=== PATIENT | female | born 1935 | race Caucasian/White ===

== ENCOUNTER 2023-03-28 12:02 | Emergency (ER) | payer MEDICARE, BC, SELFPAY ==
[2023-03-28] VITALS (12 sets, daily range): BP systolic 186–210; BP diastolic 88–110; PULSE 66–76; RESP 12–16; TEMP 36.6; O2SAT 93–100; BMI 26.5
--- NOTE | 2023-03-28 12:25 | ED.NURSE ---
Dr. Barton at bedside. States this is not a stroke and there is no need to call a code stroke overhead.
--- NOTE | 2023-03-28 12:31 | CRLHL7_ITS ---
For Patients: As a result of the Century Cures Act, medical imaging exams and procedure reports are released immediately into your electronic medical record. You may view this report before your referring provider. If you have questions, please contact your health care provider. INDICATION: Dizziness TECHNIQUE: Noncontrast axial CT of the head is submitted. No comparisons. FINDINGS: Mild cerebral atrophy. The ventricles, sulci and gyri are of normal size, shape and contour for age and degree of atrophy. Midline structures are centrally located. No convincing evidence of suspicious intra- or extra-axial fluid collections. Moderate patchy regions of decreased attenuation within the periventricular and subcortical white matter of both cerebral hemispheres. IMPRESSION: 1. No radiographic evidence of acute intracranial abnormalities. 2. Mild cerebral atrophy. 3. Moderate supratentorial white matter changes that are non-specific, but statistically most likely related to chronic small vessel ischemic disease. Dictated by Zach Richards MD @ 03/28/2023 1:39:11 PM Please note that all CT scans at this facility use dose modulation, iterative reconstruction, and/or weight-based dosing when appropriate to reduce radiation dose to as low as reasonably achievable. Dictated by: Zach Richards MD @ 03/28/2023 13:39:17 (Electronically Signed)
--- NOTE | 2023-03-28 12:45 | ED.NURSE ---
Reconfirmed with Dr. Galvan that he does not want to call a code stroke. States patient is outside of the window for treatment and does not believe this to be a stroke. States its unnecessary for patient to have q5-10m blood pressures.
[2023-03-28 12:49] LABS: Basophils Absolute Auto 0.01 K/uL (0.00-0.30); Basophils Percent Auto 0.2 % (0.0-3.0); Eosinophils Absolute Auto 0.05 K/uL (0.00-0.50); Eosinophils Percent Auto 0.8 % (0.0-7.0); Hematocrit 37.8 % (33.0-51.0); Hemoglobin* 12.4 gm/dL (12.0-16.0); Immature Granulocytes Abs Auto 0.01 K/uL (0.00-0.30); Immature Granulocytes Pct Auto 0.2 %; Lymphocytes Percent Auto 15.1 % (20-44); Mean Corpuscular HGB Conc 33 gm/dL (32-36); Mean Corpuscular Hemoglobin 33 pg (26-34); Mean Corpuscular Volume 102 fL (80-100); Monocytes Percent Auto 5.5 % (0.0-11.0); Neutrophils Percent Auto 78.2 % (42.0-72.0); Platelet Count* 205 K/uL (140-440); RDW Coefficient of Variation % 13.6 % (11.5-15.5); Red Blood Count 3.71 m/uL (4.00-5.20); White Blood Count* 6.01 K/uL (4.50-11.00)
[2023-03-28 12:50] LABS: Slide Review Reflex No
--- NOTE | 2023-03-28 12:57 | ED.NURSE ---
Pt to imaging via w/c.
[2023-03-28 13:00] LABS: Albumin* 4.3 g/dL (3.3-5.0); Chloride* 103 mmol/L (96-114); Potassium* 4.4 mmol/L (3.6-5.1); Sodium* 139 mmol/L (135-149)
[2023-03-28 13:03] LABS: Alanine Aminotransferase* 38 U/L (4-35); Alkaline Phosphatase* 97 U/L (40-150); Anion Gap 8 mEq/L (7-15); Aspartate Amino Transferase* 33 U/L (12-35); Bilirubin Total* 0.7 mg/dL (0.1-1.5); Blood Urea Nitrogen* 13 mg/dL (7-30); Calcium* 8.7 mg/dL (8.4-10.6); Carbon Dioxide* 28 mmol/L (20-32); Creatinine* 0.7 mg/dL (0.5-1.5); Est. Creatinine Clearance* 30.76; Estimated Glomerular Filt Rate 83 ml/min; Glucose* 172 mg/dL (60-115); Total Protein* 6.9 g/dL (6.0-8.3)
--- NOTE | 2023-03-28 13:03 | ED.NURSE ---
refusing FLU/COVID swab. notified.
[2023-03-28] MEDS: LACTATED RINGERS 1000 ML 1,000 ML IV (13:10)
[2023-03-28 13:19] LABS: Troponin I* < 0.01 ng/mL (0.01-0.04)
[2023-03-28] MEDS: MECLIZINE HCL 25 MG TABLET PO (13:34)
[2023-03-28 13:46] LABS: Appearance Urine Clear (Clear); Bilirubin Urine Negative (Negative); Blood Urine Negative (Negative); Color Urine Yellow (Yellow); Glucose Urine Negative (Negative); Ketones Urine Negative (Negative); Leukocyte Esterase Urine 1+ (Negative); Nitrite Urine Negative (Negative); Protein Urine Negative (Negative); Urobilinogen Urine 0.2 (0.2-1.0); pH Urine 7.5 (5.0-8.5)
[2023-03-28 13:55] LABS: RBC Urine 0-2 (0-2); Squamous Epithelial Cell Urine Few (None-Few)
--- NOTE | 2023-03-28 14:20 | ED.DIZZY ---
HPI - Dizziness General Date Seen: 03/28/23 Chief Complaint: Dizziness/Vertigo Stated Complaint: Dizziness Time Seen by Provider: 03/28/23 12:11 Source: patient and family Mode of arrival: wheelchair Limitations: no limitations History of Present Illness HPI Narrative: Patient is an 88-year-old female presents to the emergency department from urgent care for dizziness and weakness. Patient states she woke about around 03:00 and was going to the bathroom with a very dizzy. While she was walking to the bathroom symptoms began to resolve. She felt fine by the time she returned back to her bed and then got dizzy again when she laid down. She closed her eyes went to bed and woke up again at 08:00 feeling fine. She then got up and nose dizziness again. She states the dizziness is not constant in only occurs after movement. It is not lasting will go away she states someone position long enough. She went to urgent care and was sent to emergency department for concern of stroke. But they state she has had a stroke before in the symptoms were weakness and dizziness but that time the dizziness was constant and was different than was now. Due to the dizziness and weakness she did have to come in by wheelchair. Denies fevers, chills, chest pain, shortness of breath, headache, abdominal pain, nausea/vomiting. Related Data Home Medications Medication Instructions Recorded Confirmed gabapentin 300 mg capsule 600 mg PO BID 03/28/23 03/28/23 losartan 25 mg tablet 25 mg PO DAILY 03/28/23 03/28/23 Previous Rx's Medication Instructions Recorded meclizine 25 mg tablet 25 mg PO QID #20 tabs 03/28/23 Allergies Allergy/AdvReac Type Severity Reaction Status Date / Time acetaminophen [From Vicodin] Allergy Verified 03/28/23 10:09 cefaclor Allergy Verified 03/28/23 10:09 ciprofloxacin [From Cipro] Allergy Verified 03/28/23 10:09 erythromycin base Allergy Verified 03/28/23 10:09 hydrocodone [From Vicodin] Allergy Verified 03/28/23 10:09 levofloxacin Allergy Verified 03/28/23 10:09 Review of Systems Status of ROS: Reports: 10 or more systems reviewed and unremarkable except as noted in History and below [facility] Medical History CVA (cerebral vascular accident) ?I63.9 - Cerebral infarction, unspecified (ICD-10) Social History Smoking Status: Never smoker How often do you have a drink containing alcohol: never AUDIT-C Alcohol total score: 0 Non-prescribed substance use: denies use Exam Narrative: Exam Narrative: Const: Well-nourished, Well-developed, in mild distress Eyes: PERRL, no conjunctival injection, and symmetrical lids HENT: Atraumatic external nose and ears. Moist mucous membranes. Neck: Symmetric, trachea midline, No thyromegaly. CVS: RRR, No murmurs or gallops. Peripheral pulses 2+ and equal in all extremities RESP: Unlabored respiratory effort. Clear to auscultation bilaterally. GI: Nontender/Nondistended, No rebound or guarding. MSK:Extremities w/o deformity, Normal Active ROM Skin: Warm, Dry. No rashes or lesions. Neuro: Normal Muscle tone, Cranial nerves 2-12 grossly intact, normal [id number], normal [id number], normal gait, normal strength 5/5 upper lower extremities bilaterally, normal sensation upper and lower extremities bilaterally, normal rapid alternating movements. Psych: Awake, Alert, & Oriented x3. Appropriate mood and affect. Const: Vital Signs, click to edit/add: Vital Signs - 24 hr 03/28/23 12:19 03/28/23 12:31 03/28/23 12:32 Temperature 97.9 F Pulse Rate 67 73 Pulse Rate [Left P ulse Oximeter] 66 Respiratory Rate 16 16 Blood Pressure Blood Pressure [Le ft Upper Arm] 210/110 H Pulse Oximetry 99 100 99 Oxygen Delivery Me thod Room Air 03/28/23 12:40 03/28/23 12:44 03/28/23 12:45 Temperature Pulse Rate 69 75 70 Pulse Rate [Left P ulse Oximeter] Respiratory Rate Blood Pressure Blood Pressure [Le ft Upper Arm] Pulse Oximetry 93 94 96 Oxygen Delivery Me thod 03/28/23 13:07 03/28/23 13:15 03/28/23 13:30 Temperature Pulse Rate 72 69 76 Pulse Rate [Left P ulse Oximeter] Respiratory Rate 14 14 Blood Pressure Blood Pressure [Le ft Upper Arm] Pulse Oximetry 100 97 96 Oxygen Delivery Me thod 03/28/23 13:46 03/28/23 14:00 03/28/23 14:49 Temperature 97.9 F Pulse Rate 67 69 Pulse Rate [Left P ulse Oximeter] 66 Respiratory Rate 14 12 12 Blood Pressure 186/88 H Blood Pressure [Le ft Upper Arm] 186/88 H Pulse Oximetry 99 94 Oxygen Delivery Me thod Course Vital Signs Vital signs: Initial Vital Signs Pulse Rate 67 03/28/23 12:19 Pulse Oximetry 99 03/28/23 12:19 Vital Signs Pulse Rate 67 03/28/23 12:19 Pulse Oximetry 99 03/28/23 12:19 Temperature 97.9 F 03/28/23 14:49 Pulse Rate 66 03/28/23 14:49 Respiratory Rate 12 03/28/23 14:49 Blood Pressure 186/88 H 03/28/23 14:49 Pulse Oximetry 94 03/28/23 14:00 Oxygen Delivery Method Room Air 03/28/23 12:32 Medications Administered Medications: Discontinued Medications Generic Name Dose Route Start Last Admin Trade Name Julienne PRN Reason Stop Dose Admin Lactated Ringer's 1,000 mls @ 1,000 mls/hr 03/28/23 12:30 03/28/23 14:10 Lactated Ringers 1000 Ml IV 03/28/23 13:29 Infused .Q1H ONE Infusion Meclizine HCl 25 mg 03/28/23 13:13 03/28/23 13:34 Meclizine Hcl 25 Mg Tablet PO 03/28/23 13:14 25 mg ONCE ONE Administration MDM - Dizziness MDM Narrative Medical decision making narrative: Patient is a an 88-year-old female presents emergency department for dizziness and weakness. Symptoms started this morning interpersonal some she woke up at 03:00. She is feeling fine last night before she went to bed. She was concerned for stroke because she has had similar symptoms in the past but that time the symptoms were constant. This time is stroke seems very unlikely concerning symptoms are mostly associated with head movement. Is there is associated weakness as possible for an infection. COVID/flu/RSV was ordered but patient refused. We will do a head CT to check for any signs of intracranial masses. CBC, troponin, CMP, urinalysis ordered. She is given meclizine and lactated Ringer's. Lab workup returned showing no concerning abnormalities. Head CT showed no acute abnormalities. No signs of UTI. She is not having respiratory symptoms and pneumonia seems unlikely. After the medicines her symptoms have fully resolved and she feels back to normal. Patient is probably suffering from vertigo likely BPPV. Again seems extremely unlikely to be a stroke causing the symptoms as they resolved with the medication and again were only occurring with movement. The could been some associated dehydration also has causing the weakness. Weakness is also gone. At this time patient family feel safe for discharge. Patient follow-up with the primary care provider. Meclizine was prescribed. Lab Data Labs: Lab Results 03/28/23 03/28/23 Range/Units 12:32 12:40 WBC 6.01 (4.50-11.00) K/uL RBC 3.71 L (4.00-5.20) m/uL Hgb 12.4 (12.0-16.0) gm/dL Hct 37.8 (33.0-51.0) % MCV 102 H (80-100) fL MCH 33 (26-34) pg MCHC 33 (32-36) gm/dL RDW Coeff of Ricardo 13.6 (11.5-15.5) % Plt Count 205 (140-440) K/uL Neut % (Auto) 78.2 H (42.0-72.0) % Lymph % (Auto) 15.1 L (20-44) % Cherry % (Auto) 5.5 (0.0-11.0) % Eos % (Auto) 0.8 (0.0-7.0) % Baso % (Auto) 0.2 (0.0-3.0) % Neut # (Auto) 4.70 (1.7-7.0) K/uL Lymph # (Auto) 0.90 (0.90-2.90) K/uL Cherry # (Auto) 0.30 (0.00-0.90) K/UL Eos # (Auto) 0.05 (0.00-0.50) K/uL Baso # (Auto) 0.01 (0.00-0.30) K/uL Abs Immat Gran (auto) 0.01 (0.00-0.30) K/uL Imm/Tot Granulo (auto) 0.2 % Sodium 139 (135-149) mmol/L Potassium 4.4 (3.6-5.1) mmol/L Chloride 103 (96-114) mmol/L Carbon Dioxide 28 (20-32) mmol/L Anion Gap 8 (7-15) mEq/L BUN 13 (7-30) mg/dL Creatinine 0.7 (0.5-1.5) mg/dL Estimated Creat Clear 30.76 Estimated GFR 83 ml/min Glucose 172 H (60-115) mg/dL Calcium 8.7 (8.4-10.6) mg/dL Total Bilirubin 0.7 (0.1-1.5) mg/dL AST 33 (12-35) U/L ALT 38 H (4-35) U/L Alkaline Phosphatase 97 (40-150) U/L Troponin I < 0.01 L (0.01-0.04) ng/mL Total Protein 6.9 (6.0-8.3) g/dL Albumin 4.3 (3.3-5.0) g/dL Urine Color Yellow (Yellow) Urine Appearance Clear (Clear) Urine pH 7.5 (5.0-8.5) Ur Specific [place] 1.010 (1.000-1.030) Urine Protein Negative (Negative) Urine Glucose (UA) Negative (Negative) Urine Ketones Negative (Negative) Urine Blood Negative (Negative) Urine Nitrite Negative (Negative) Urine Bilirubin Negative (Negative) Urine Urobilinogen 0.2 (0.2-1.0) Ur Leukocyte Esterase 1+ A (Negative) Urine RBC 0-2 (0-2) Urine WBC 2-5 (0-5) Ur Squamous Epith Cells Few (None-Few) Urine Bacteria None (None) ECG Data Attestation: I personally reviewed and interpreted this ECG as follows: Interpretation: Normal sinus rhythm with a rate of 69 beats per minute, normal intervals, normal axis, no ST or T-wave abnormalities Discharge Plan Discharge Clinical Impression: Benign paroxysmal positional vertigo Qualifiers: Laterality: unspecified laterality Qualified Code(s): H81.10 - Benign paroxysmal vertigo, unspecified ear Patient Disposition: Home, Self-Care Condition: Improved Instructions: Vertigo (DC) Additional Instructions: Take the meclizine as needed for dizziness. Also stay well hydrated as some dehydration may have been part of what was causing these symptoms. Return for new or worsening symptoms. Keep your current primary care provider appointment in 2 weeks plus symptoms seemed to persist more than for 5 days see view can move that appointment up Prescriptions: New meclizine 25 mg tablet 25 mg PO QID Qty: 20 0RF No Action losartan 25 mg tablet 25 mg PO DAILY gabapentin 300 mg capsule 600 mg PO BID Follow Up/Referrals: Provider,Not a Local [Primary Care Provider] - Stand Alone Forms: [email or web address] Info Instructions
--- NOTE | 2023-03-28 14:30 | ED.NURSE ---
Pt reports significant improvement in symptoms after IVF and med.
== END 2023-03-28 14:49 | disposition home or self-care (01) ==
PROVIDERS: Emergency Provider Student in an Organized Health Care Education/Training Program
DX: H81.10 Benign paroxysmal vertigo, unspecified ear (principal)
CPT/HCPCS: 36415; 70450; 80053; 81001; 84484; 85025; 87086; 87631; 93005; 99283; 99284; A9270; J7120